=== PATIENT | female | born 1990 | race Caucasian/White ===

== ENCOUNTER 2021-06-26 12:28 | Emergency (ER) | payer OTHER ==
[~2021-06-26] VITALS: Ht 162.6 cm; Wt 62.1 kg
[2021-06-26] MEDS ORDERED: LORA-259 PO (12:35)
--- NOTE | 2021-06-26 12:35 | NUR ---
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 Placed comfortably in bed. Vitals checked
[2021-06-26] MEDS ORDERED: LORAZEPAM INJ 2 MG/ML VIAL ONE (12:41)
--- NOTE | 2021-06-26 12:53 | NUR ---
SEEN BY DR NG AT BEDSIDE WITH ORDERS.
[2021-06-26] MEDS ORDERED: LORAZEPAM INJ 2 MG/ML VIAL IM ONE (13:00)
--- NOTE | 2021-06-26 13:12 | NUR ---
dPatient discharged to home in stable condition. Written and verbal after care instructions given. Patient verbalizes understanding of instruction.
[2021-06-26 13:14] VITALS: BP 128/83
== END 2021-06-26 13:15 | disposition home or self-care (01) ==
LOC: ER 12:31
DX: F41.9 Anxiety disorder, unspecified (principal); Z79.899 Other long term (current) drug therapy
CPT/HCPCS: 96372; 99283; J2060

== ENCOUNTER 2021-07-23 18:21 | Emergency (ER) | payer OTHER ==
[~2021-07-23] VITALS: Ht 162.6 cm; Wt 59.0 kg
[~2021-07-23 18:21] MED LIST: LORA-259 PO
[2021-07-23] MEDS ORDERED: LEVE250T2 PO ×2 (18:39→21:16)
[2021-07-23 20:15] VITALS: BP 136/85
[2021-07-23] MEDS ORDERED: LORA-259 PO (21:16)
[2021-07-23] MEDS ORDERED: LEVETIRACETAM (250 MG) 250 MG TABLET PO ONE (21:18)
[2021-07-23] MEDS ORDERED: LORAZEPAM 1 MG TABLET ONE (21:18)
[2021-07-23] MEDS: LORAZEPAM 1 MG TABLET PO ONE (21:22)
[2021-07-23] MEDS: LEVETIRACETAM (250 MG) 250 MG TABLET PO ONE (21:22)
== END 2021-07-23 21:43 | disposition home or self-care (01) ==
LOC: ER 18:23
DX: F41.9 Anxiety disorder, unspecified (principal); F13.20 Sedative, hypnotic or anxiolytic dependence, uncomplicated; R20.2 Paresthesia of skin; G40.802 Other epilepsy, not intractable, without status epilepticus; Z76.0 Encounter for issue of repeat prescription; Z79.899 Other long term (current) drug therapy; F17.200 Nicotine dependence, unspecified, uncomplicated

== ENCOUNTER 2021-07-31 09:48 | Emergency (ER) | payer OTHER ==
[~2021-07-31] VITALS: Ht 162.6 cm; Wt 59.0 kg
[~2021-07-31 09:48] MED LIST changes: +LEVE250T2 PO
[2021-07-31] MEDS ORDERED: LORAZEPAM INJ 2 MG/ML VIAL ONE (09:58)
[2021-07-31] MEDS ORDERED: LORAZEPAM INJ 2 MG/ML VIAL IM ONE (10:00)
--- NOTE | 2021-07-31 10:15 | NUR ---
Pt bib RA for anxiety/mild panic attack. Pt has complicated med hx with sz disorder and ca, unclear, pt jittery and clearly anxious. AAOx4, lucid, answers questions, follows command. VSS, PE WNL 127/85, 99%RA, 16rpm, 89bpm. 0/10pain. Denies any sob, pain, n/v dizziness. No s/sxof distress present. Pt has mild to mod anxiety. EDMD at bedside for eval.
--- NOTE | 2021-07-31 10:20 | NUR ---
Pt given 1mg Ativan IM per EDMD order, in lt deltoid without difficulty. Pt started to calm down slowly approx 5-10 min after injection. Pt escorted to restroom, upon exiting restroom, pt was markly different in demeanor, Pt no longer so jittery and scatterbrained, and much more calm and composed. Very greatful of the services rendered. Pt will be kept for approx 30-45 min for observation then DCed home.
--- NOTE | 2021-07-31 11:15 | NUR ---
Pt given DC instructions which reiterated what the EDMD discussed with her. Went over the aftercare instruction with pt, pt confirmed understanding. Last VS WNL, NAD, Pt in good spiries and would like to go operate the rest of her day. Pt signed out and ambulated out of dept with steady gait. No s/sxof anxiety or distress present. Pt in smiling, jovial mood.
[2021-07-31 12:21] VITALS: BP 115/65
== END 2021-07-31 11:15 | disposition home or self-care (01) ==
LOC: ER 09:50
DX: F41.9 Anxiety disorder, unspecified (principal); Z86.69 Personal history of other diseases of the nervous system and sense organs; Z79.899 Other long term (current) drug therapy
CPT/HCPCS: 96372; 99283; J2060

== ENCOUNTER 2023-11-16 17:37 | Emergency (ER) | payer OTHER ==
[~2023-11-16] VITALS: Ht 165.1 cm; Wt 63.5 kg
[2023-11-16 17:42] VITALS: TEMP 98.1
[2023-11-16] MEDS ORDERED: LORAZEPAM INJ 2 MG/ML VIAL ONE (17:55)
[2023-11-16] MEDS: IV NS 0.9% 1,000 ML BAG IV ONE (18:05)
[2023-11-16] MEDS: LORAZEPAM INJ 2 MG/ML VIAL IVP ONE (18:05)
[2023-11-16 18:14] LABS: BASOPHILS % (AUTO) 0.6 % (0.0-2.0); EOSINOPHILS % (AUTO) 0.2 % (0.0-6.0); HEMATOCRIT 42 % (33-45); HEMOGLOBIN 13.8 g/dL (11.5-14.8); LYMPHOCYTES # (AUTO) 1.5 K/uL (0.8-4.8); LYMPHOCYTES % (AUTO) 20.7 % (20.0-44.0); MEAN CORPUSCULAR HEMOGLOBIN 32 PG (26.0-33.0); MEAN CORPUSCULAR HGB CONC 33 g/dl (31.0-36.0); MEAN CORPUSCULAR VOLUME 95 fL (82-100); MONOCYTES # (AUTO) 0.5 K/uL (0.1-1.30); NEUTROPHILS % (AUTO) 71.5 % (43.0-81.0); PLATELET COUNT (AUTO) 204 K/uL (150-450); RED CELL DISTRIBUTION WIDTH 13.3 % (11.5-15.0)
[2023-11-16 18:21] LABS: CALCIUM, SERUM 9.3 mg/dL (8.5-10.1); CREATININE 0.7 mg/dL (0.6-1.3); POTASSIUM 3.4 mmol/L (3.5-5.1)
[2023-11-16 19:38] VITALS: BP 118/84; O2SAT 100
[2023-11-22] MEDS ORDERED: LAMO100T2 PO (13:23)
== END 2023-11-16 19:38 | disposition home or self-care (01) ==
LOC: ER 17:40
DX: G40.909 Epilepsy, unspecified, not intractable, without status epilepticus (principal); R20.2 Paresthesia of skin; F41.9 Anxiety disorder, unspecified; R10.2 Pelvic and perineal pain; Z79.899 Other long term (current) drug therapy
CPT/HCPCS: 99284; 96374; 96361; 93005; 85025; 80048; 36415; 84702; J2060; J7030

== ENCOUNTER 2023-11-21 18:59 | Inpatient (IN) | payer OTHER ==
[~2023-11-21] VITALS: Ht 162.6 cm; Wt 59.0 kg
[2023-11-21 19:27] LABS: BASOPHILS % (AUTO) 0.4 % (0.0-2.0); EOSINOPHILS % (AUTO) 0.5 % (0.0-6.0); HEMATOCRIT 43 % (33-45); HEMOGLOBIN 14.3 g/dL (11.5-14.8); LYMPHOCYTES # (AUTO) 1.3 K/uL (0.8-4.8); LYMPHOCYTES % (AUTO) 20.4 % (20.0-44.0); MEAN CORPUSCULAR HEMOGLOBIN 32 PG (26.0-33.0); MEAN CORPUSCULAR HGB CONC 33 g/dl (31.0-36.0); MEAN CORPUSCULAR VOLUME 96 fL (82-100); MONOCYTES # (AUTO) 0.5 K/uL (0.1-1.30); MONOCYTES % (AUTO) 7.5 % (2.0-12.0); NEUTROPHILS # (AUTO) 4.6 K/uL (1.8-8.9); NEUTROPHILS % (AUTO) 71.2 % (43.0-81.0); PLATELET COUNT (AUTO) 203 K/uL (150-450); RED BLOOD CELL COUNT(AUTO) 4.48 MIL/uL (4.0-5.2); RED CELL DISTRIBUTION WIDTH 13.5 % (11.5-15.0); WHITE BLOOD COUNT (AUTO) 6.5 K/uL (4.3-11.0)
[2023-11-21] MEDS ORDERED: LORAZEPAM INJ 2 MG/ML VIAL ONE (19:30)
[2023-11-21 19:38] LABS: CALCIUM, SERUM 9.3 mg/dL (8.5-10.1); POTASSIUM 3.2 mmol/L (3.5-5.1)
[2023-11-21 19:42] LABS: MAGNESIUM 1.8 mg/dL (1.8-2.4)
[2023-11-21 19:43] LABS: PHOSPHORUS 0.8 mg/dL (2.5-4.9)
[2023-11-21] MEDS: LORAZEPAM INJ 2 MG/ML VIAL IV ONE (19:43)
[2023-11-21] MEDS: IV NS 0.9% 1,000 ML BAG IV ONE (19:49)
[2023-11-21] MEDS: POTASSIUM PHOSPHATE MM 5 MMOL in IV NS 0.9% 100 ML IV STA (20:02)
[2023-11-21] MEDS ORDERED: MAG HYDROX/AL HYDROX/SIMETH 30 ML UDC PO PRN (21:30)
[2023-11-21] MEDS ORDERED: LORAZEPAM ORAL SOLN 2 MG/ML ORAL.CONC PO PRN (21:30)
[2023-11-21] MEDS ORDERED: MAGNESIUM HYDROXIDE 30 ML UDC PO PRN (21:30)
[2023-11-21] MEDS ORDERED: Z GUARD REMEDY 4 OZ OINT TP PRN (21:30)
[2023-11-21] MEDS ORDERED: ACETAMINOPHEN 325 MG TABLET PO PRN (21:30)
[2023-11-22 00:45] VITALS: BP 105/70; TEMP 98.2; O2SAT 99
[2023-11-22] MEDS: ONDANSETRON HCL/PF 4 MG/2 ML VIAL IVP PRN (02:06)
[2023-11-22 04:00] VITALS: BP 98/63; TEMP 98.6; O2SAT 100
[2023-11-22 04:55] VITALS: BP 98/63; TEMP 98.6; O2SAT 100
[2023-11-22 06:45] LABS: BASOPHILS % (AUTO) 0.4 % (0.0-2.0); EOSINOPHILS # (AUTO) 0.1 K/uL (0.0-0.7); EOSINOPHILS % (AUTO) 1.1 % (0.0-6.0); HEMATOCRIT 38 % (33-45); HEMOGLOBIN 12.6 g/dL (11.5-14.8); LYMPHOCYTES # (AUTO) 1.9 K/uL (0.8-4.8); LYMPHOCYTES % (AUTO) 28.5 % (20.0-44.0); MEAN CORPUSCULAR HEMOGLOBIN 32 PG (26.0-33.0); MEAN CORPUSCULAR HGB CONC 34 g/dl (31.0-36.0); MEAN CORPUSCULAR VOLUME 95 fL (82-100); MONOCYTES # (AUTO) 0.6 K/uL (0.1-1.30); MONOCYTES % (AUTO) 9.3 % (2.0-12.0); NEUTROPHILS # (AUTO) 4.2 K/uL (1.8-8.9); NEUTROPHILS % (AUTO) 60.7 % (43.0-81.0); PLATELET COUNT (AUTO) 183 K/uL (150-450); RED BLOOD CELL COUNT(AUTO) 3.95 MIL/uL (4.0-5.2); RED CELL DISTRIBUTION WIDTH 13.4 % (11.5-15.0); WHITE BLOOD COUNT (AUTO) 6.8 K/uL (4.3-11.0)
[2023-11-22 07:00] VITALS: BP 102/68; TEMP 98.4; O2SAT 99
[2023-11-22 07:17] LABS: CALCIUM, SERUM 8.4 mg/dL (8.5-10.1); CREATININE 0.7 mg/dL (0.6-1.3); MAGNESIUM 2.3 mg/dL (1.8-2.4); PHOSPHORUS 3.5 mg/dL (2.5-4.9); POTASSIUM 3.6 mmol/L (3.5-5.1)
[2023-11-22 07:42] LABS: THYROID STIMULATING HORMONE 0.3 uIU/mL (0.358-3.74)
[2023-11-22] MEDS ORDERED: LISD30CA2 PO (07:43)
[2023-11-22] MEDS ORDERED: LAMO100T2 PO (13:23)
== END 2023-11-22 12:01 | disposition left against medical advice (07) | DRG 423 ==
LOC: ER 19:03 → MED 11-22 00:20 → TELE 11-22 00:52
PROVIDERS: ADMIT Nurse Practitioner Family; ATTEND Nurse Practitioner Acute Care
DX: E83.39 Other disorders of phosphorus metabolism (principal); E87.1 Hypo-osmolality and hyponatremia; E87.6 Hypokalemia; F41.9 Anxiety disorder, unspecified; G40.909 Epilepsy, unspecified, not intractable, without status epilepticus; T45.2X5A Adverse effect of vitamins, initial encounter; Y92.9 Unspecified place or not applicable; Z79.899 Other long term (current) drug therapy
CPT/HCPCS: 36415; 80048-TC; 82550-TC; 83735-TC; 84100-TC; 84443-TC; 85025-TC; A4223; G0378; J2060; J2405; J3490; J7030